=== PATIENT | male | born 1985 | race Caucasian/White ===

== ENCOUNTER 2023-11-30 20:05 | Emergency (ER) | payer OTHER, BC ==
[2023-11-30] MEDS: ceFAZolin 1 GM in Sodium Chloride 0.9% 50 ML IV ONE (20:31)
[2023-11-30] MEDS: Diphtheria,Pertussis(Acell),Tetanus Vaccine 0.5 ML Syringe IM ONE (20:32)
[2023-11-30 20:35] LABS: BASOPHILS ABSOLUTE AUTO 0.03 K/uL (0.00-0.20); BASOPHILS PERCENT AUTO 0.2 % (0.0-1.0); EOSINOPHILS ABSOLUTE AUTO 0.04 K/uL (0.00-0.45); EOSINOPHILS PERCENT AUTO 0.3 % (0.0-6.0); HEMATOCRIT 41.6 % (42.0-52.0); HEMOGLOBIN 14.5 g/dL (14.0-18.0); IMMATURE GRAN ABSOLUTE AUTO 0.04 K/uL (0.00-0.05); IMMATURE GRAN PERCENT AUTO 0.3 % (0.0-0.4); LYMPHOCYTES PERCENT AUTO 9.9 % (24.0-44.0); MEAN CORPUSCULAR HGB CONC 34.9 g/dL (32.0-36.0); MEAN CORPUSCULAR VOLUME 83.2 fL (83.0-99.0); MONOCYTES ABSOLUTE AUTO 0.73 K/uL (0.00-0.80); MONOCYTES PERCENT AUTO 4.8 % (0.0-8.0); NEUTROPHILS ABSOLUTE AUTO 12.77 K/uL (1.80-7.70); NEUTROPHILS PERCENT AUTO 84.5 % (41.0-71.0); PLATELET COUNT,PLT 285 K/uL (150-400); WHITE BLOOD CELL COUNT,WBC 15.11 K/uL (3.9-11.3)
[2023-11-30 20:48] LABS: INR 0.93 (0.86-1.11)
[2023-11-30 21:04] LABS: A/G RATIO 1.2 (0.9-1.6); ALANINE AMINOTRANSFERASE,ALT 49 IU/L (14-63); ALBUMIN 3.8 g/dL (3.4-5.0); ALKALINE PHOSPHATASE 81 U/L (46-116); ASPARTATE AMNIOTRANSFERASE,AST 34 IU/L (15-37); BILIRUBIN TOTAL 0.5 mg/dL (0.2-1.0); BLOOD UREA NITROGEN,BUN 10 mg/dL (7.0-18.0); CALCIUM 8.9 mg/dL (8.5-10.1); CARBON DIOXIDE,CO2 23.4 mmol/L (21.0-32.0); CHLORIDE,CL 101 mmol/L (98-107); CREATININE 1.2 mg/dL (0.8-1.3); GLUCOSE RANDOM 151 mg/dL (74-106); POTASSIUM,K 3.7 mmol/L (3.5-5.1); PROTEIN TOTAL,TP 7.1 g/dL (6.4-8.2); SODIUM,NA 135 mmol/L (136-148)
[2023-11-30 21:10] LABS: ESTIMATED GFR 81 mL/min (>60)
[2023-11-30] MEDS: fentaNYL 50 MCG/ML SDV IVPUSH ONE (21:31)
== END 2023-11-30 22:40 | disposition home or self-care (01) ==
LOC: MW.ED 20:05
DX: S92.901A Unspecified fracture of right foot, initial encounter for closed fracture (principal); W22.8XXA Striking against or struck by other objects, initial encounter
CPT/HCPCS: 29515; 36415; 73620; 80053; 85025; 85610; 86850; 86900; 86901; 90471; 90715; 96365; 96375; 99284; J0690; J3010; J3490